=== PATIENT | female | born 1975 | race Caucasian/White ===

== ENCOUNTER 2017-11-05 18:44 | Emergency (ER) | payer SELFPAY, OTHER | END 2017-11-05 20:24 | disposition left against medical advice (07) | LOC: FTE 20:24 | DX: Z53.21 Procedure and treatment not carried out due to patient leaving prior to being seen by health care provider (principal) | CPT/HCPCS: 93005 ==

== ENCOUNTER 2018-08-05 14:34 | Emergency (ER) | payer OTHER | END 2018-08-05 15:34 | disposition home or self-care (01) | LOC: FTE 14:34 | DX: H60.92 Unspecified otitis externa, left ear (principal) | CPT/HCPCS: 99283; Z7502 ==

== ENCOUNTER 2018-12-17 01:32 | Emergency (ER) | payer OTHER ==
[2018-12-17] MEDS: IBUPROFEN 800 MG TAB PO (07:12)
== END 2018-12-17 08:40 | disposition home or self-care (01) ==
LOC: FTE 01:32
DX: S52.225A Nondisplaced transverse fracture of shaft of left ulna, initial encounter for closed fracture (principal); W01.0XXA Fall on same level from slipping, tripping and stumbling without subsequent striking against object, initial encounter; Y92.9 Unspecified place or not applicable
CPT/HCPCS: 29105; 73090; 73110-LT; 99283-25

== ENCOUNTER 2019-04-20 12:44 | Emergency (ER) | payer OTHER | END 2019-04-20 15:43 | disposition home or self-care (01) | LOC: E/R 12:44 | DX: R00.2 Palpitations (principal) | CPT/HCPCS: 93005; 99283-25 ==